=== PATIENT | female | born 1940 | race Caucasian/White ===

== ENCOUNTER 2016-11-29 21:00 | Emergency (ER) | payer MEDICAID ==
[~2016-11-29 21:00] MED LIST: ADV250/50 INH; ALPHAGAN P5 M1 OP; ALPHAGAN P5 M1 OU; BIA500 PO; BIAXIN500 MG PO; CLINDAMYCIN HC300 MG PO; COMBIGAN5 ML OP; ELA10 PO; FLA500 PO; FOSAMAX70 MG PO; LAC PO; LEVAQUIN750 MG PO; LEVOTHYROXIN0.025 M2 PO; MEDDP PO; MEDROL DOSEPAK4 MG PO; METRONIDAZOLE500 MG PO; MOTRIN800 MG PO; OPTIVE OU; PRI20 PO; PRILOSEC20 MG PO; PROAIR HFA0.09 MG/A1 INH; SEROQUEL25 MG PO; SERTRALINE25 M1 PO; SINGULAIR10 MG PO; UNK INHALER; ZES10 PO; ZOLOFT25 MG PO
[2016-11-29 23:59] VITALS: BP 159/75
== END 2016-11-29 23:59 | disposition home or self-care (01) ==
LOC: ED 21:00
DX: J44.9 Chronic obstructive pulmonary disease, unspecified (principal); S30.0XXA Contusion of lower back and pelvis, initial encounter; M81.0 Age-related osteoporosis without current pathological fracture; Z88.0 Allergy status to penicillin; S01.81XA Laceration without foreign body of other part of head, initial encounter; W01.190A Fall on same level from slipping, tripping and stumbling with subsequent striking against furniture, initial encounter; Y93.89 Activity, other specified; Y99.8 Other external cause status; Y92.89 Other specified places as the place of occurrence of the external cause
CPT/HCPCS: 90715; J3010; Q0162

== ENCOUNTER 2017-11-26 11:44 | Inpatient (IN) | payer MEDICAID ==
[~2017-11-26] VITALS: Ht 160 cm; Wt 53.3 kg
[2017-11-26 11:46] VITALS: Ht 160 cm; Wt 53.3 kg
[2017-11-26 12:48] LABS: BASOPHIL % 0.3 % (0-2); PLATELET COUNT 195 x10^3mcL (130-400)
[2017-11-26 12:49] LABS: RED CELL DISTRIBUTION WIDTH 15.1 % (11.5-14.5)
[2017-11-26 12:52] LABS: CALCIUM 9.2 mg/dL (8.5-10.1); CARBON DIOXIDE 25.7 mmol/L (21-32); CHLORIDE SERUM 101 mmol/L (98-107); CREATININE SERUM 1.1 mg/dL (0.6-1.0); GLUCOSE SERUM 128 mg/dL (74-106); POTASSIUM SERUM 3.5 mmol/L (3.5-5.1); SODIUM SERUM 137 mmol/L (136-145)
[2017-11-26 13:07] LABS: ALBUMIN 3.5 g/dL (3.4-5.0); ALKALINE PHOSPHATASE 85 U/L (46-116); ALT/SGPT 22 U/L (14-59); AST/SGOT 19 U/L (15-37); BILIRUBIN TOTAL 1.04 mg/dL (0.20-1.00); TOTAL PROTEIN, SERUM 7.9 g/dL (6.4-8.2)
[2017-11-26 14:49] LABS: UA SPECIFIC GRAVITY 1.015 (1.005-1.035); microscopic required? YES; urine erythrocyte NEGATIVE (NEGATIVE)
[2017-11-26 15:44] VITALS: BP 115/47
[2017-11-26 17:03] VITALS: BP 112/51
[2017-11-26 18:09] LABS: MAGNESIUM 1.9 mg/dL (1.8-2.4); PHOSPHOROUS 3.4 mg/dL (2.5-4.9)
[2017-11-26 19:31] VITALS: BP 112/51
[2017-11-26 20:35] VITALS: BP 96/47
[2017-11-27 05:45] VITALS: BP 113/47
[2017-11-27 06:30] LABS: PLATELET COUNT 172 x10^3mcL (130-400)
[2017-11-27 06:37] LABS: CALCIUM 8.2 mg/dL (8.5-10.1); CHLORIDE SERUM 101 mmol/L (98-107); CREATININE SERUM 0.9 mg/dL (0.6-1.0); GLUCOSE SERUM 93 mg/dL (74-106); POTASSIUM SERUM 3.6 mmol/L (3.5-5.1); SODIUM SERUM 134 mmol/L (136-145)
[2017-11-27 06:49] LABS: CARBON DIOXIDE 21.8 mmol/L (21-32)
[2017-11-27 07:01] LABS: RED CELL DISTRIBUTION WIDTH 14.7 % (11.5-14.5)
[2017-11-27 08:48] LABS: BAND NEUTROPHIL 9 % (0-10); BASOPHIL 0 % (0-2); MONOCYTE 3 % (0-7); SEGMENTED NEUTROPHILS 83 % (37-75)
[2017-11-27 08:49] LABS: PLATELET MORPHOLOGY PLATELETS DECREASED; rbc morphology (normal/abnorm) ABNORMAL (NORMAL)
[2017-11-27 09:10] VITALS: BP 96/41
[2017-11-27 16:35] VITALS: BP 112/65
[2017-11-27 21:07] VITALS: BP 98/43
[2017-11-28 05:51] VITALS: BP 110/47
[2017-11-28 06:13] LABS: CARBON DIOXIDE 25.5 mmol/L (21-32); CHLORIDE SERUM 107 mmol/L (98-107); CREATININE SERUM 1.1 mg/dL (0.6-1.0); GLUCOSE SERUM 81 mg/dL (74-106); POTASSIUM SERUM 4.2 mmol/L (3.5-5.1); SODIUM SERUM 140 mmol/L (136-145)
[2017-11-28 06:24] LABS: BASOPHIL % 0.2 % (0-2); PLATELET COUNT 167 x10^3mcL (130-400); RED CELL DISTRIBUTION WIDTH 14.2 % (11.5-14.5)
[2017-11-28 09:08] VITALS: BP 114/51
[2017-11-28] MEDS ORDERED: LEVAQUIN750 MG PO (14:53)
[2017-11-28] MEDS ORDERED: LAC PO (14:54)
[2017-11-28 16:15] VITALS: BP 114/51
[2017-11-28 17:21] VITALS: BP 116/80
== END 2017-11-28 18:50 | disposition home or self-care (01) | DRG 720 ==
LOC: ED 11:44 → MU 13:52
PROVIDERS: Emergency Medicine; Internal Medicine
DX: A41.9 Sepsis, unspecified organism (principal); J96.21 Acute and chronic respiratory failure with hypoxia; N17.0 Acute kidney failure with tubular necrosis; J18.9 Pneumonia, unspecified organism; E86.0 Dehydration; J44.9 Chronic obstructive pulmonary disease, unspecified; Z99.81 Dependence on supplemental oxygen; R80.9 Proteinuria, unspecified; R73.03 Prediabetes; M81.0 Age-related osteoporosis without current pathological fracture; M19.90 Unspecified osteoarthritis, unspecified site; H54.8 Legal blindness, as defined in USA; Z96.641 Presence of right artificial hip joint; Z68.29 Body mass index [BMI] 29.0-29.9, adult; Z87.891 Personal history of nicotine dependence
CPT/HCPCS: 36600; 83880; 87804; 94150; 97110-GP; 97116-GP; 97530-GP; J0456; J0696; J2405; J2543; J3490; J7030; J7613; J7620; J7644